=== PATIENT | male | born 1955 | race Caucasian/White ===

== ENCOUNTER → 2017-06-29 | Day surgery (SDC) | payer OTHER ==
[2017-06-24 16:57] VITALS: BMI 25.7
[~2017-06-29] MED LIST: LACTATED RINGERS 1,000 ML IV SCH; LIDOCAINE 1% 20 ML VIAL (10MG/ML) FOR IV START INTRADERMA ONE; LIDOCAINE 1% INJ 10MG/ML (20 ML MDV) ONE; PROPOFOL 10 MG/ML 20 ML VIAL IV ONE
[2017-06-29 11:01] VITALS: TEMP 97
--- NOTE | 2017-06-29 11:48 | P.PCN ---
Date of Procedure: 06/29/17 Procedure(s) Performed: BRIEF HISTORY: Patient is a 61-year-old pleasant male, scheduled for an elective colonoscopy as a part of evaluation of change in bowel habits for the last 6 months duration. He also has prior history of colon polyps and the last colonoscopy was 2 and half years ago. He does have strong family history of colon cancer in his mother and sister. PROCEDURE PERFORMED: Colonoscopy. PREOPERATIVE DIAGNOSIS: Change in bowel habits/history of colon polyps/family history of colon cancer. IV sedation per Anesthesia. PROCEDURE: After informed consent was obtained, the patient, was brought into the endoscopy unit. IV sedation was administered by Anesthesia under continuous monitoring. Digital rectal examination was normal. Initially the Olympus CF- 160 flexible video colonoscope was then inserted in the rectum, gradually advanced into the cecum without any difficulty. Careful examination was performed as the scope was gradually being withdrawn. Ileocecal valve and the appendiceal orifice were visualized and appeared normal. Prep was excellent. Mucosa of the cecum, ascending colon, transverse colon, descending colon, sigmoid colon, and rectum appeared normal. Scattered sigmoid diverticulosis seen. Retroflexion was performed in the rectum and no lesions were seen. The patient tolerated the procedure well. IMPRESSION: Normal-appearing colon from rectum to cecum with no evidence of colorectal neoplasia . Scattered sigmoid diverticulosis. RECOMMENDATIONS: Findings of this examination were discussed with the patient as well as his family. He was advised to have a repeat screening colonoscopy in 3-5 years
[2017-06-29 11:50] VITALS: RESP 18
[2017-06-29 12:07] VITALS: BP 118/79; PULSE 64
== END ==
LOC: ORWHC2ENDO 09:22
PROVIDERS: ATTEND Internal Medicine Gastroenterology
DX: K57.30 Diverticulosis of large intestine without perforation or abscess without bleeding (principal); Z86.010 Personal history of colon polyps; Z80.0 Family history of malignant neoplasm of digestive organs; K64.9 Unspecified hemorrhoids; E78.5 Hyperlipidemia, unspecified; Z79.899 Other long term (current) drug therapy
CPT/HCPCS: 45378; J2001; J2704

== ENCOUNTER 2021-01-21 09:00 | Day surgery (SDC) | payer MEDICARE, OTHER ==
[2021-01-15 15:01] VITALS: BMI 27.1
[~2021-01-21 09:00] MED LIST changes: +LIDOCAINE 1% (10MG/ML) FOR IV START INTRADERMA PRN; -LIDOCAINE 1% 20 ML VIAL (10MG/ML) FOR IV START INTRADERMA ONE; -LIDOCAINE 1% INJ 10MG/ML (20 ML MDV) ONE; -PROPOFOL 10 MG/ML 20 ML VIAL IV ONE
[2021-01-21 09:53] VITALS: TEMP 97.8
[2021-01-21] MEDS ORDERED: LACTATED RINGERS 1,000 ML IV ONE (09:53)
[2021-01-21] MEDS ORDERED: PROPOFOL 10 MG/ML 20 ML VIAL IV ONE (10:42)
[2021-01-21] MEDS ORDERED: LIDOCAINE 1% INJ 10MG/ML (20 ML MDV) ONE (10:42)
--- NOTE | 2021-01-21 11:07 | P.PCN ---
Date of Procedure: 01/21/21 Procedure(s) Performed: BRIEF HISTORY: Patient is a 65-year-old pleasant male scheduled for an elective colonoscopy as a part of the evaluation of of prior history of colon polyps and strong family history of colon cancer. His mother and sister were diagnosed with colon cancer at age 80 and 50 respectively. PROCEDURE PERFORMED: Colonoscopy. PREOPERATIVE DIAGNOSIS: History of colon polyps and family history of colon cancer. IV sedation per Anesthesia. PROCEDURE: After informed consent was obtained, the patient, was brought into the endoscopy unit. IV sedation was administered by Anesthesia under continuous monitoring. Digital rectal examination was normal. Initially the Olympus CF-160 flexible video colonoscope was then inserted in the rectum, gradually advanced into the cecum without any difficulty. Careful examination was performed as the scope was gradually being withdrawn. Ileocecal valve and the appendiceal orifice were visualized and appeared normal. Prep was excellent. Mucosa of the cecum, ascending colon, transverse colon, descending colon, sigmoid colon, and rectum appeared normal. Retroflexion was performed in the rectum and no lesions were seen. Scattered sigmoid diverticula seen. The patient tolerated the procedure well. IMPRESSION: Normal-appearing colon from rectum to cecum with no evidence of colitis or colorectal neoplasia. Scattered sigmoid diverticulosis. Small internal hemorrhoids. RECOMMENDATIONS: Findings of this examination were discussed with the patient well as his family. He was advised to have a repeat surveillance colonoscopy in 5 years from now because of the prior history of colon polyps and family history of colon cancer.
[2021-01-21 11:14] VITALS: RESP 16
[2021-01-21 11:29] VITALS: BP 122/77; PULSE 67
== END 2021-01-21 11:47 | disposition home or self-care (01) ==
LOC: ORWHC2ENDO 09:00
PROVIDERS: ATTEND Internal Medicine Gastroenterology
DX: K57.30 Diverticulosis of large intestine without perforation or abscess without bleeding (principal); K64.8 Other hemorrhoids; Z80.0 Family history of malignant neoplasm of digestive organs; Z87.19 Personal history of other diseases of the digestive system
CPT/HCPCS: 45378; J2001; J2704

== ENCOUNTER → 2021-09-23 | Outpatient (CLI) | payer MEDICARE ==
--- NOTE | 2021-09-23 12:16 | CA ---
Exercise Stress Test Report Name: Joseph Martinez Exam Date: 09/23/2021 10:13 Exam Location: [facility] Stress Ht (in): 71 Wt (lb): 190 BSA: 2.06 Ordering Phys: Joseph Jimenez MD Referring Phys: Bharati Nieves Technologist: Naresh Madera Age: 65 Gender: M : 1955 Procedure CPT: Indications: R07.89 chest discomfort, R06.02 SOB ICD-10 Codes: Patient History: Chest discomfort Medications: Atorvastatin Meds past 24 hrs: Pretest Chest Pain: STRESS TEST Derik Protocol Exercise Duration (min:sec): 09:[address] Depressions (mm): Angina Score: Redd Score: Resting HR (bpm): 50 Peak HR (bpm): 147 Resting BP (mmHg): 132 / 84 Peak BP (mmHg): 197 / 76 MPHR: 155 Target HR: 132 % MPHR: 95 METS: 10.9 Total Dose: Peak Dose: Atropine: Double Product: 56827 BP Response: Stress Termination: Reached target heart rate Stress Symptoms: No chest pain or symptoms Stress Summary: ECG ANALYSIS Resting ECG: Normal sinus rhythm right bundle branch block secondary ST-T wave changes Stress ECG: Inconclusive secondary to baseline EKG abnormalities CONCLUSIONS Good exercise tolerance Inconclusive EKG part of the stress test due to baseline EKG abnormalities Cardiolite portion of the stress test will be reported separately Dr. Donald Ward MD (Electronically Signed) Final Date: 23 September 2021 12:15
--- NOTE | 2021-09-23 22:49 | NM ---
EXAMINATION TYPE: NM stress cardiolite complete DATE OF EXAM: 09/23/2021 COMPARISON: NONE HISTORY: Chest discomfort and shortness of breath. History of hypercholesterolemia. Family history of heart attack. TECHNIQUE: After the intravenous administration of 10.1 mCi Tc 99m Sestamibi - Rest images obtained 45 minutes post injection. The patient exercised using a MICHEL protocol and 1 minute prior to peak exercise was injected with 25.2 mCi Tc 99m Sestamibi - Stress images obtained 35 minutes post injecti on. FINDINGS: Targeted heart rate was achieved during performance of the study. Review of stress and rest SPECT ena ges demonstrates no distinct perfusion abnormality. Gated analysis shows normal wall motion with an estimated left ventricular ejection fraction of 59 %. IMPRESSION: No scintigraphic evidence for reversible ischemia
== END | disposition home or self-care (01) ==
LOC: RADNMMAIN 08:40
PROVIDERS: ATTEND Family Medicine
DX: R07.89 Other chest pain (principal); R06.02 Shortness of breath
CPT/HCPCS: 93017; 78452; A9500